=== PATIENT | female | born 1950 | race Caucasian/White ===

== ENCOUNTER 2018-05-14 16:11 | Emergency (ER) | payer MEDICARE, BC ==
[~2018-05-14] VITALS: Ht 157.5 cm; Wt 82.0 kg
[2018-05-14 16:13] VITALS: Ht 157.5 cm; Wt 82.0 kg
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
[2018-05-14] MEDS ORDERED: IBUPROFEN 600 MG TAB PO ONE (20:30)
[2018-05-14] MEDS ORDERED: ACETAMINOPHEN 325 MG TAB PO ONE (20:30)
[2018-05-14] MEDS ORDERED: IBUP-1561 PO (22:43)
[2018-05-14] MEDS ORDERED: HYDR-4011 PO (22:43)
[2018-05-14 23:05] VITALS: BP 150/92; PULSE 88; RESP 20
== END 2018-05-14 23:05 | disposition home or self-care (01) ==
LOC: FTE 16:11
DX: S32.009A Unspecified fracture of unspecified lumbar vertebra, initial encounter for closed fracture (principal); I10 Essential (primary) hypertension; V43.52XA Car driver injured in collision with other type car in traffic accident, initial encounter
CPT/HCPCS: 72128; 72131; 81003